=== PATIENT | male | born 1965 | race Caucasian/White ===

== ENCOUNTER 2019-02-19 15:41 | Inpatient (IN) | payer OTHER ==
[2019-02-19 20:02] VITALS: BMI 36.0
--- NOTE | 2019-02-19 22:39 | HP ---
CIWA Score Nausea/Vomitin Muscle Tremors: 4-Moderate,w/Arms Extend Anxiety: 4-Mod. Anxious/Guarded Agitation: 4-Moderately Restless Paroxysmal Sweats: 2 Orientation: 1-Uncertain about Date Tacttile Disturbances: 0-None Auditory Disturbances: 0-None Visual Disturbances: 0-None Headache: 3-Moderate CIWA-Ar Total Score: 20 - Admission Criteria OASAS Guidelines: Admission for Medically Managed Detox: Requires at least one of the followin. CIWA greater than 12 2. Seizures within the past 24 hours 3. Delirium tremens within the past 24 hours 4. Hallucinations within the past 24 hours 5. Acute intervention needed for co occurring medical disorder 6. Acute intervention needed for co occurring psychiatric disorder 7. Severe withdrawal that cannot be handled at a lower level of care (continued vomiting, continued diarrhea, abnormal vital signs) requiring intravenous medication and/or fluids 8. Admission ROS [facility] Chief Complaint: Alcohol withdrawal symptoms Allergies/Adverse Reactions: Allergies Allergy/AdvReac Type Severity Reaction Status Date / Time No Known Allergies Allergy Verified 02/19/19 19:54 History of Present Illness: 53 years old male with a long history of alcohol dependence (since age 11) is seeking admission to detox. Patient has been in previous detox, last at [facility] and reports 9 months of sobriety. He has medical history of hypertension, anxiety and depression. He reports suicide attempt at age 11 and denies suicidal ideation at this time. Exam Limitations: No Limitations - Ebola screening Have you traveled outside of the country in the last 21 days: No Have you had contact with anyone from an Ebola affected area: No - Review of Systems Constitutional: Chills, Malaise, Night Sweats, Changes in sleep EENT: reports: No Symptoms Reported Respiratory: reports: No Symptoms reported Cardiac: reports: No Symptoms Reported GI: reports: Poor Appetite, Poor Fluid Intake, Abdominal cramping : reports: No Symptoms Reported Musculoskeletal: reports: No Symptoms Reported Integumentary: reports: Dryness, Flushing Neuro: reports: Headache, Tremors, Weakness Endocrine: reports: No Symptoms Reported Hematology: reports: No Symptoms Reported Psychiatric: reports: Mood/Affect Appropiate Other Systems: Reviewed and Negative Patient History - Patient Medical History Hx Anemia: No Hx Asthma: No Hx Chronic Obstructive Pulmonary Disease (COPD): No Hx Cancer: No Hx Cardiac Disorders: No Hx Congestive Heart Failure: No Hx Hypertension: Yes (Lisinopril, HCTZ) Hx Hypercholesterolemia: No Hx Pacemaker: No HX Cerebrovascular Accident: No Hx Seizures: No Hx Diabetes: No Hx Gastrointestinal Disorders: No Hx Liver Disease: No Hx Genitourinary Disorders: No Hx Sexually Transmitted Disorders: No Hx Renal Disease (ESRD): No Hx Thyroid Disease: No Hx Human Immunodeficiency Virus (HIV): No (Negative 2019) Hx Hepatitis C: No Hx Depression: Yes (Not on medication) Hx Suicide Attempt: Yes (Attempt at age 11, denies suicidal ideation at this time) Hx Bipolar Disorder: No Hx Schizophrenia: No Other Medical History: Anxiety - Not on mediation - Patient Surgical History Past Surgical History: No - PPD History Previous Implant?: Yes (POSITIVE PPD. INH FOR 9 MONTHS IN 2008) Documented Results: Positive w/o proof Implanted On Prior [facility] Admission?: No PPD to be Administered?: No - Reproductive History Patient is a Female of Child Bearing Age (11 -55 yrs old): No (MALE) - Smoking Cessation Smoking history: Current every day smoker Have you smoked in the past 12 months: No Hx Chewing Tobacco Use: No Initiated information on smoking cessation: No - Substance & Tx. History Hx Alcohol Use: Yes Hx Substance Use: Yes Substance Use Type: Alcohol Hx Substance Use Treatment: [facility] - Substances abused Alcohol Substance route: Oral Frequency: Daily Amount used: liquor- 1 pint, beer- 2 six packs Age of first use: 11 Date of last use: 02/18/19 Crack Substance route: Smoking Frequency: Daily Amount used: $100 worth Age of first use: 20 Date of last use: 02/18/19 Marijuana/Hashish Substance route: Smoking Frequency: Daily Amount used: 2 blunts Age of first use: 11 Date of last use: 02/18/19 Family Disease History - Family Disease History Family History: Denies Admission Physical Exam S - Vital Signs Vital Signs: Vital Signs - 24 hr 02/19/19 02/19/19 19:46 20:52 Temperature 97.3 F L 97.3 F L Pulse Rate 87 87 Respiratory 18 18 Rate Blood Pressure 137/85 137/85 - Physical General Appearance: Yes: Moderate Distress, Tremorous, Sweating, Anxious HEENTM: Yes: Within Normal Limits Respiratory: Yes: Lungs Clear, Normal Breath Sounds, No Respiratory Distress Neck: Yes: Supple Breast: Yes: Breast Exam Deferred Cardiology: Yes: Within Normal Limits Abdominal: Yes: Normal Bowel Sounds, Protuberent Genitourinary: Yes: Within Normal Limits Back: Yes: Normal Inspection Musculoskeletal: Yes: Within Normal Limits Extremities: Yes: Tremors Neurological: Yes: Alert, Normal Mood/Affect Integumentary: Yes: Cold Lymphatic: Yes: Within Normal Limits - Diagnostic (1) Alcohol dependence with uncomplicated withdrawal Current Visit: Yes Status: Acute (2) Hypertension Current Visit: Yes Status: Acute (3) Anxiety Current Visit: Yes Status: Acute (4) Depression Current Visit: Yes Status: Acute (5) Positive PPD, treated Current Visit: Yes Status: Acute Cleared for Admission S - Detox or Rehab [facility] Level of Care: Medically Managed Detox Regimen/Protocol: Librium Claeared for Rehab Admission: No Breathalyzer - Breathalyzer Breathalyzer: 0 Urine Drug Screen - Test Device Lot number: [id number] Expiration date: 12/05/20 - Control Is test valid?: Yes - Results Urine drug screen results: HARJINDER-Cocaine, BZO-Benzodiazepines Inpatient Rehab Admission - Rehab Decision to Admit Inpatient rehab admission?: No
[2019-02-19] MEDS ORDERED: IBUPROFEN 400 MG TABLET (FP) PO PRN (22:53)
[2019-02-19] MEDS ORDERED: MENTHOL/PHENOL 1 EACH UD MM PRN (22:53)
[2019-02-19] MEDS ORDERED: BISMUTH SUBSALICYLATE 524 MG/30 ML UD PO PRN (22:53)
[2019-02-19] MEDS ORDERED: ACETAMINOPHEN 325 MG TABLET (FP) PO PRN ×2 (22:53)
[2019-02-19] MEDS ORDERED: METHOCARBAMOL 500 MG TABLET PO PRN (22:53)
[2019-02-19] MEDS ORDERED: MAG HYDROX/AL HYDROX/SIMETH 30 ML UNIT-DOSE CUP PO PRN (22:53)
[2019-02-19] MEDS ORDERED: hydrOXYzine HCL 25 MG TABLET (FP) PO PRN (22:53)
[2019-02-19] MEDS ORDERED: MELATONIN 5 MG TABLETS PO PRN (22:53)
[2019-02-19] MEDS ORDERED: chlordiazePOXIDE HCL 25 MG CAPSULE PO PRN (22:53)
[2019-02-19] MEDS ORDERED: MAGNESIUM HYDROX 2400MG/30ML ORAL SUSPENSION 30 ML CUP PO PRN (22:53)
[2019-02-19] MEDS ORDERED: MAGNESIUM CITRATE 300 ML BOTTLE PO PRN (22:53)
[2019-02-19] MEDS: chlordiazePOXIDE HCL 25 MG CAPSULE PO SCH (23:42)
[2019-02-20] MEDS: chlordiazePOXIDE HCL 25 MG CAPSULE PO SCH ×4 (06:39→23:10)
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
--- NOTE | 2019-02-20 09:07 | PN ---
[facility] CIWA - CIWA Score Nausea/Vomitin Muscle Tremors: 2 Anxiety: 2 Agitation: 2 Paroxysmal Sweats: 1-Minimal Palms Moist Orientation: 0-Oriented Tacttile Disturbances: 1-Very Mild Itch/Numbness Auditory Disturbances: 1-Very Mild Visual Disturbances: 0-None Headache: 2-Mild CIWA-Ar Total Score: 13 [facility] Progress Note (SOAP) Subjective: alert,irritable,anxious,interrupted sleep,tremor Objective: 02/20/19 09:05 Vital Signs Temperature 97.7 F 02/20/19 07:15 Pulse Rate 73 02/20/19 07:15 Respiratory Rate 18 02/20/19 07:15 Blood Pressure 132/72 02/20/19 07:15 O2 Sat by Pulse Oximetry (%) 02/20/19 09:05 labs pending Assessment: 02/20/19 09:06 withdrawal symptom Plan: continue detox,iibrium regimen
[2019-02-20] MEDS: PRENATAL VITAMINS W/ FOLIC ACID TABLET (FP) PO SCH (10:53)
[2019-02-20] MEDS: HYDROCHLOROTHIAZIDE 25 MG TABLET (FP) PO SCH (10:54)
[2019-02-20] MEDS: LISINOPRIL 20 MG TABLET (FP) PO SCH (10:55)
[2019-02-20 12:15] LABS: HEMOGLOBIN 12.7 GM/dL (11.7-16.9); RBC 4.69 M/mm3 (4.00-5.60); WHITE BLOOD COUNT 6.5 K/mm3 (4.0-10.0)
[2019-02-20 12:16] LABS: HEMATOCRIT 39.2 % (35.4-49); MCH 27.2 pg (25.7-33.7); MCHC 32.5 g/dl (32.0-35.9); MEAN CELL VOLUME 83.6 fl (80-96); MEAN PLT VOLUME 9.8 fl (7.5-11.1)
[2019-02-20 12:26] LABS: ALBUMIN 3.3 g/dl (3.4-5.0); BILIRUBIN,TOTAL 0.9 mg/dL (0.2-1); BLOOD UREA NITROGEN 18.3 mg/dL (7-18); CALCIUM 8.2 mg/dL (8.5-10.1); CREATININE 1.2 mg/dL (0.55-1.3); POTASSIUM 3.7 mmol/L (3.5-5.1); TOT PROT 6.3 g/dl (6.4-8.2)
[2019-02-20 13:19] LABS: PLATELET COUNT 172 K/MM3 (134-434)
[2019-02-20] MEDS: THIAMINE HCL 100 MG TABLET (FP) PO SCH (23:10)
[2019-02-21] MEDS: chlordiazePOXIDE HCL 25 MG CAPSULE PO SCH ×4 (06:51→22:41)
--- NOTE | 2019-02-21 10:17 | PN ---
S CIWA - CIWA Score Nausea/Vomitin-Mild Nausea/No Vomiting Muscle Tremors: 1-None Visible, but [place] Anxiety: 1-Mildly Anxious Agitation: 1-Slight > Activity Paroxysmal Sweats: 2 Orientation: 0-Oriented Tacttile Disturbances: 1-Very Mild Itch/Numbness Auditory Disturbances: 0-None Visual Disturbances: 1-Very Mild Sensitivity Headache: 0-None Present CIWA-Ar Total Score: 8 [facility]HS Progress Note (SOAP) Subjective: c/o of interrupted sleep, irritable, body aches Objective: 02/21/19 10:09 Vital Signs Temperature 97.7 F 02/21/19 07:14 Pulse Rate 67 02/21/19 07:14 Respiratory Rate 18 02/21/19 07:14 Blood Pressure 112/63 02/21/19 07:14 O2 Sat by Pulse Oximetry (%) Laboratory Last Values WBC 6.5 K/mm3 (4.0-10.0) 02/20/19 07:00 RBC 4.69 M/mm3 (4.00-5.60) 02/20/19 07:00 Hgb 12.7 GM/dL (11.7-16.9) 02/20/19 07:00 Hct 39.2 % (35.4-49) 02/20/19 07:00 MCV 83.6 fl (80-96) 02/20/19 07:00 MCH 27.2 pg (25.7-33.7) 02/20/19 07:00 MCHC 32.5 g/dl (32.0-35.9) 02/20/19 07:00 RDW 16.0 % (11.9-15.9) H 02/20/19 07:00 Plt Count 172 K/MM3 (134-434) 02/20/19 07:00 MPV 9.8 fl (7.5-11.1) 02/20/19 07:00 Sodium 144 mmol/L (136-145) 02/20/19 07:00 Potassium 3.7 mmol/L (3.5-5.1) 02/20/19 07:00 Chloride 110 mmol/L (98-107) H 02/20/19 07:00 Carbon Dioxide 28 mmol/L (21-32) 02/20/19 07:00 Anion Gap 5 MMOL/L (8-16) L 02/20/19 07:00 BUN 18.3 mg/dL (7-18) H 02/20/19 07:00 Creatinine 1.2 mg/dL (0.55-1.3) 02/20/19 07:00 Est GFR (CKD-EPI)AfAm 78.98 02/20/19 07:00 Est GFR (CKD-EPI)NonAf 68.14 02/20/19 07:00 Random Glucose 119 mg/dL (74-106) H 02/20/19 07:00 Calcium 8.2 mg/dL (8.5-10.1) L 02/20/19 07:00 Total Bilirubin 0.9 mg/dL (0.2-1) 02/20/19 07:00 AST 26 U/L (15-37) 02/20/19 07:00 ALT 48 U/L (13-61) 02/20/19 07:00 Alkaline Phosphatase 96 U/L (45-117) 02/20/19 07:00 Total Protein 6.3 g/dl (6.4-8.2) L 02/20/19 07:00 Albumin 3.3 g/dl (3.4-5.0) L 02/20/19 07:00 RPR Titer Nonreactive (NONREACTIVE) 02/20/19 07:00 labs reviewed Assessment: 02/21/19 10:18 Aox3 irritable no acute distress no adventitious breath sounds full ROM Plan: increase PO fluids continue detox continue to monitor
[2019-02-21] MEDS: HYDROCHLOROTHIAZIDE 25 MG TABLET (FP) PO SCH (15:13)
[2019-02-21] MEDS: LISINOPRIL 20 MG TABLET (FP) PO SCH (15:13)
[2019-02-21] MEDS: PRENATAL VITAMINS W/ FOLIC ACID TABLET (FP) PO SCH (15:13)
[2019-02-21] MEDS: THIAMINE HCL 100 MG TABLET (FP) PO SCH (22:41)
[2019-02-22] MEDS ORDERED: chlordiazePOXIDE HCL 10 MG CAPSULE PO PRN
[2019-02-22] MEDS: chlordiazePOXIDE HCL 10 MG CAPSULE PO SCH ×4 (06:37→23:25)
[2019-02-22] MEDS: HYDROCHLOROTHIAZIDE 25 MG TABLET (FP) PO SCH (10:30)
[2019-02-22] MEDS: PRENATAL VITAMINS W/ FOLIC ACID TABLET (FP) PO SCH (10:30)
[2019-02-22] MEDS: LISINOPRIL 20 MG TABLET (FP) PO SCH (10:30)
--- NOTE | 2019-02-22 14:44 | PN ---
[facility] CIWA - CIWA Score Nausea/Vomitin-No Nausea/No Vomiting Muscle Tremors: 1-None Visible, but [place] Anxiety: 2 Agitation: 0-Normal Activity Paroxysmal Sweats: 2 Orientation: 0-Oriented Tacttile Disturbances: 1-Very Mild Itch/Numbness Auditory Disturbances: 0-None Visual Disturbances: 0-None Headache: 1-Very Mild CIWA-Ar Total Score: 7 S Progress Note (SOAP) Subjective: interrupted sleep, chills, body aches Objective: 02/22/19 14:43 Vital Signs Temperature 97.9 F 02/22/19 13:21 Pulse Rate 79 02/22/19 13:21 Respiratory Rate 18 02/22/19 13:21 Blood Pressure 137/92 02/22/19 13:21 O2 Sat by Pulse Oximetry (%) Laboratory Last Values WBC 6.5 K/mm3 (4.0-10.0) 02/20/19 07:00 RBC 4.69 M/mm3 (4.00-5.60) 02/20/19 07:00 Hgb 12.7 GM/dL (11.7-16.9) 02/20/19 07:00 Hct 39.2 % (35.4-49) 02/20/19 07:00 MCV 83.6 fl (80-96) 02/20/19 07:00 MCH 27.2 pg (25.7-33.7) 02/20/19 07:00 MCHC 32.5 g/dl (32.0-35.9) 02/20/19 07:00 RDW 16.0 % (11.9-15.9) H 02/20/19 07:00 Plt Count 172 K/MM3 (134-434) 02/20/19 07:00 MPV 9.8 fl (7.5-11.1) 02/20/19 07:00 Sodium 144 mmol/L (136-145) 02/20/19 07:00 Potassium 3.7 mmol/L (3.5-5.1) 02/20/19 07:00 Chloride 110 mmol/L (98-107) H 02/20/19 07:00 Carbon Dioxide 28 mmol/L (21-32) 02/20/19 07:00 Anion Gap 5 MMOL/L (8-16) L 02/20/19 07:00 BUN 18.3 mg/dL (7-18) H 02/20/19 07:00 Creatinine 1.2 mg/dL (0.55-1.3) 02/20/19 07:00 Est GFR (CKD-EPI)AfAm 78.98 02/20/19 07:00 Est GFR (CKD-EPI)NonAf 68.14 02/20/19 07:00 Random Glucose 119 mg/dL (74-106) H 02/20/19 07:00 Calcium 8.2 mg/dL (8.5-10.1) L 02/20/19 07:00 Total Bilirubin 0.9 mg/dL (0.2-1) 02/20/19 07:00 AST 26 U/L (15-37) 02/20/19 07:00 ALT 48 U/L (13-61) 02/20/19 07:00 Alkaline Phosphatase 96 U/L (45-117) 02/20/19 07:00 Total Protein 6.3 g/dl (6.4-8.2) L 02/20/19 07:00 Albumin 3.3 g/dl (3.4-5.0) L 02/20/19 07:00 RPR Titer Nonreactive (NONREACTIVE) 02/20/19 07:00 Assessment: 02/22/19 14:44 withdrawal sx Plan: continue detox
[2019-02-22] MEDS: THIAMINE HCL 100 MG TABLET (FP) PO SCH (23:15)
[2019-02-23] MEDS ORDERED: chlordiazePOXIDE HCL 10 MG CAPSULE PO SCH (05:00)
--- NOTE | 2019-02-23 10:15 | DS ---
[facility] Detox Discharge Summary Admission Date: 02/19/19 Discharge Date: 02/23/19 - History Present History: Alcohol Dependence, Cannabis Dependence, Cocaine Dependence - Physical Exam Results Vital Signs: Vital Signs Temperature 98.1 F 02/23/19 09:08 Pulse Rate 74 02/23/19 09:08 Respiratory Rate 18 02/23/19 09:08 Blood Pressure 136/91 02/23/19 09:08 O2 Sat by Pulse Oximetry (%) Pertinent Admission Physical Exam Findings: pt arrived in withdrawals Laboratory Tests 02/20/19 02/20/19 02/20/19 07:00 07:00 07:00 WBC 6.5 RBC 4.69 Hgb 12.7 Hct 39.2 MCV 83.6 MCH 27.2 MCHC 32.5 RDW 16.0 H Plt Count 172 MPV 9.8 Sodium 144 Potassium 3.7 Chloride 110 H Carbon Dioxide 28 Anion Gap 5 L BUN 18.3 H Creatinine 1.2 Est GFR (CKD-EPI)AfAm 78.98 Est GFR (CKD-EPI)NonAf 68.14 Random Glucose 119 H Calcium 8.2 L Total Bilirubin 0.9 AST 26 ALT 48 Alkaline Phosphatase 96 Total Protein 6.3 L Albumin 3.3 L RPR Titer Nonreactive pt is aaox3 ambulating no s/s of withdrawals - Treatment Hospital Course: Detox Protocol Followed, Detoxed Safely, Responded well, Discharged Condition Good, Rehab Referral Accepted Patient has Accepted a Rehab Referral to: pt referred to [facility] inpatient rehab - Medication Discharge Medications: Ambulatory Orders Hydrochlorothiazide 37.5 mg PO DAILY 02/19/19 Lisinopril [Prinivil -] 40 mg PO DAILY 02/19/19 - Diagnosis (1) Alcohol dependence with uncomplicated withdrawal Current Visit: Yes Status: Chronic (2) Anxiety Current Visit: Yes Status: Acute (3) Cannabis dependence Current Visit: Yes Status: Chronic (4) Cocaine dependence Current Visit: Yes Status: Chronic Qualifiers: Substance use status: uncomplicated Qualified Code(s): F14.20 - Cocaine dependence, uncomplicated (5) Depression Current Visit: Yes Status: Acute (6) Substance-induced sleep disorder Current Visit: Yes Status: Acute (7) Hypertension Current Visit: Yes Status: Chronic Qualifiers: Hypertension type: essential hypertension Qualified Code(s): I10 - Essential (primary) hypertension (8) MDD (major depressive disorder) Current Visit: Yes Status: Chronic (9) Nicotine dependence Current Visit: Yes Status: Chronic Qualifiers: Nicotine product type: cigarettes Substance use status: uncomplicated Qualified Code(s): F17.210 - Nicotine dependence, cigarettes, uncomplicated (10) PTSD (post-traumatic stress disorder) Current Visit: Yes Status: Chronic (11) Positive PPD, treated Current Visit: Yes Status: Resolved - AMA Did Patient Leave Against Medical Advice: No (referred to rehab in [facility])
[2019-02-23] MEDS: PRENATAL VITAMINS W/ FOLIC ACID TABLET (FP) PO SCH (10:23)
[2019-02-23] MEDS: HYDROCHLOROTHIAZIDE 25 MG TABLET (FP) PO SCH (10:23)
[2019-02-23] MEDS: LISINOPRIL 20 MG TABLET (FP) PO SCH (10:26)
[2019-02-23] MEDS ORDERED: AMMONIUM LACTATE 12% LOTION 225 GM BOTTLE TP PRN (11:20)
[2019-02-23] MEDS ORDERED: COLLOIDAL OATMEAL 1 BAR EACH TP ONE (11:21)
[2019-02-23 13:02] VITALS: BP 144/96; PULSE 84; TEMP 97.5
[2019-02-24] MEDS ORDERED: chlordiazePOXIDE HCL 10 MG CAPSULE PO ONE (05:00)
== END 2019-02-23 14:35 | disposition other institution (70) | DRG 774 ==
LOC: YASAS 15:41 → Y6N 23:05
PROVIDERS: ADMIT Surgery; ATTEND Surgery
PROC: HZ2ZZZZ Detoxification Services for Substance Abuse Treatment (ICD-10-PCS; principal; 2019-02-19)
DX: F10.230 Alcohol dependence with withdrawal, uncomplicated (principal); F14.20 Cocaine dependence, uncomplicated; F12.20 Cannabis dependence, uncomplicated; F17.210 Nicotine dependence, cigarettes, uncomplicated; F41.9 Anxiety disorder, unspecified; F32.9 Major depressive disorder, single episode, unspecified; F19.282 Other psychoactive substance dependence with psychoactive substance-induced sleep disorder; F43.10 Post-traumatic stress disorder, unspecified; I10 Essential (primary) hypertension; R76.11 Nonspecific reaction to tuberculin skin test without active tuberculosis; Z91.5 Personal history of self-harm; Z59.0 Homelessness
CPT/HCPCS: 36415; 80053; 85027; 86593

== ENCOUNTER 2019-02-23 15:09 | Inpatient (IN) | payer OTHER ==
--- NOTE | 2019-02-23 13:09 | HP ---
[facility] Rehab Assess/Revision - Admission History Admitted to Rehab from[facility] - Findings Detox History & Physical reviewed: Yes Concur with findings: Yes Inpatient Rehab Admission - Rehab Decision to Admit Inpatient rehab admission?: Yes - Initial Determination Are CD services needed?: Yes Free of communicable disease: Yes Not in need of hospitalization: Yes - Rehab Admission Criteria Previous failed treatment: Yes Poor recovery environment: Yes Comorbidities: Yes Lacks judgement: Yes Patient is meeting Inpatient Rehab admission criteria:: Yes
[~2019-02-23 15:09] MED LIST: ACETAMINOPHEN 325 MG TABLET (FP) PO PRN; AMMONIUM LACTATE 12% LOTION 225 GM BOTTLE TP PRN; IBUPROFEN 400 MG TABLET (FP) PO PRN; LOPERAMIDE HCL 2 MG CAPSULE PO PRN; MAG HYDROX/AL HYDROX/SIMETH 30 ML UNIT-DOSE CUP PO PRN; MAGNESIUM CITRATE 300 ML BOTTLE PO PRN; MAGNESIUM HYDROX 2400MG/30ML ORAL SUSPENSION 30 ML CUP PO PRN; MENTHOL/PHENOL 1 EACH UD MM PRN; NICOTINE POLACRILEX 4 MG GUM BUC PRN; P-EPHED 60MG/TRIPROLIDI 2.5MG TABLET PO PRN; guaiFENesin 200 MG/10 ML 10 ML UNIT-DOSE CUPS PO PRN; hydrOXYzine PAMOATE 50 MG CAPSULE (FP) PO PRN
[2019-02-23] MEDS ORDERED: MELATONIN 5 MG TABLETS PO PRN (22:00)
[2019-02-23] MEDS: THIAMINE HCL 100 MG TABLET (FP) PO SCH (22:30)
[2019-02-24 06:54] VITALS: TEMP 97.8
[2019-02-24] MEDS: NICOTINE 21 MG/24 HOURS TOPICAL PATCH TD SCH (10:00)
[2019-02-24] MEDS: PRENATAL VITAMINS W/ FOLIC ACID TABLET (FP) PO SCH (10:00)
[2019-02-24] MEDS ORDERED: AMMONIUM LACTATE 12% LOTION 225 GM BOTTLE TP PRN (10:23)
[2019-02-24] MEDS ORDERED: LISINOPRIL 20 MG TABLET (FP) PO SCH (10:30)
[2019-02-24] MEDS ORDERED: HYDROCHLOROTHIAZIDE 25 MG TABLET (FP) PO SCH (10:30)
[2019-02-24] MEDS ORDERED: COLLOIDAL OATMEAL 1 BAR EACH TP PRN (11:31)
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
[2019-02-24] MEDS: THIAMINE HCL 100 MG TABLET (FP) PO SCH (21:36)
[2019-02-25] MEDS ORDERED: HYDROCHLOROTHIAZIDE 12.5 MG CAPSULE (FP) PO SCH (09:40)
[2019-02-25] MEDS ORDERED: LISINOPRIL 10 MG TABLET (FP) PO SCH (10:00)
[2019-02-25] MEDS: NICOTINE 21 MG/24 HOURS TOPICAL PATCH TD SCH (10:14)
[2019-02-25] MEDS: PRENATAL VITAMINS W/ FOLIC ACID TABLET (FP) PO SCH (10:15)
[2019-02-25 10:56] VITALS: BP 152/87; PULSE 75
--- NOTE | 2019-02-25 23:15 | DS ---
[facility] Detox Discharge Summary Admission Date: 02/23/19 Discharge Date: 02/25/19 - History Additional Comments: I was informed by the nurse, Ms. Pelayo at 11.10AM that patient left against medical advice at about 8.00PM. Unable to obtain any further information Pertinent Past History: Withdrawal symptoms - Physical Exam Results Vital Signs: Vital Signs Temperature 97.8 F 02/25/19 07:21 Pulse Rate 75 02/25/19 10:00 Respiratory Rate 18 02/25/19 10:00 Blood Pressure 152/87 02/25/19 10:00 O2 Sat by Pulse Oximetry (%) Pertinent Admission Physical Exam Findings: Alcohol dependence, cocaine dependence, cannabis dependence, opioids dependence - Medication Discharge Medications: Ambulatory Orders Hydrochlorothiazide 37.5 mg PO DAILY 02/19/19 Lisinopril [Prinivil -] 40 mg PO DAILY 02/19/19 - Diagnosis (1) Alcohol dependence with uncomplicated withdrawal Status: Chronic (2) Depression Status: Acute Qualifiers: Major depression episode severity: unspecified (3) Hypertension Status: Chronic Qualifiers: Hypertension type: essential hypertension Qualified Code(s): I10 - Essential (primary) hypertension (4) MDD (major depressive disorder) Status: Chronic (5) Nicotine dependence Status: Chronic Qualifiers: Nicotine product type: cigarettes Substance use status: uncomplicated Qualified Code(s): F17.210 - Nicotine dependence, cigarettes, uncomplicated (6) PTSD (post-traumatic stress disorder) Status: Chronic (7) Positive PPD, treated Status: Resolved - AMA Did Patient Leave Against Medical Advice: Yes
== END 2019-02-25 20:35 | disposition left against medical advice (07) | DRG 770 ==
LOC: YASAS 15:09 → Y5N 15:10
PROVIDERS: ADMIT Neuromusculoskeletal Medicine & OMM; ATTEND Neuromusculoskeletal Medicine & OMM
PROC: HZ42ZZZ Group Counseling for Substance Abuse Treatment, Cognitive-Behavioral (ICD-10-PCS; principal; 2019-02-23)
DX: F14.20 Cocaine dependence, uncomplicated (principal); F12.20 Cannabis dependence, uncomplicated; F17.210 Nicotine dependence, cigarettes, uncomplicated; F32.9 Major depressive disorder, single episode, unspecified; F19.282 Other psychoactive substance dependence with psychoactive substance-induced sleep disorder; F43.10 Post-traumatic stress disorder, unspecified; I10 Essential (primary) hypertension; Z91.5 Personal history of self-harm; Z59.0 Homelessness

== ENCOUNTER 2021-07-07 12:44 | Inpatient (IN) | payer OTHER ==
[2021-07-07 13:28] VITALS: BMI 29.5
[2021-07-07] MEDS ORDERED: MAGNESIUM CITRATE 300 ML BOTTLE PO PRN (14:03)
[2021-07-07] MEDS ORDERED: MAG HYDROX/AL HYDROX/SIMETH 30 ML UNIT-DOSE CUP PO PRN (14:03)
[2021-07-07] MEDS ORDERED: P-EPHED 60MG/TRIPROLIDI 2.5MG TABLET PO PRN (14:03)
[2021-07-07] MEDS ORDERED: ACETAMINOPHEN 325 MG TABLET (FP) PO PRN (14:03)
[2021-07-07] MEDS ORDERED: MAGNESIUM HYDROX 2400MG/30ML ORAL SUSPENSION 30 ML CUP PO PRN (14:03)
[2021-07-07] MEDS ORDERED: NICOTINE 10 MG CARTRIDGE (INHALER) IH PRN (14:03)
[2021-07-07] MEDS ORDERED: guaiFENesin 200 MG/10 ML 10 ML UNIT-DOSE CUPS PO PRN (14:03)
[2021-07-07] MEDS ORDERED: LOPERAMIDE HCL 2 MG CAPSULE PO PRN (14:03)
[2021-07-07] MEDS ORDERED: IBUPROFEN 400 MG TABLET (FP) PO PRN (14:03)
[2021-07-07] MEDS: NICOTINE 7 MG/24 HOURS TOPICAL PATCH TD SCH (15:06)
[2021-07-07] MEDS: PRENATAL VITAMINS W/ FOLIC ACID TABLET (FP) PO SCH (15:12)
[2021-07-07 18:42] LABS: HEMATOCRIT 49.1 % (35.4-49); HEMOGLOBIN 16.3 GM/dL (11.7-16.9); MCHC 33.1 g/dl (32.0-35.9); MEAN CELL VOLUME 84.6 fl (80-96); MEAN PLT VOLUME 9.5 fl (7.5-11.1); PLATELET COUNT 225 10^3/uL (134-434); RDW 14.4 % (11.9-15.9); WHITE BLOOD COUNT 8.6 K/mm3 (4.0-10.0)
[2021-07-07 18:44] LABS: CALCIUM 9.6 mg/dL (8.5-10.1)
[2021-07-07 18:45] LABS: ALBUMIN 4.2 g/dl (3.4-5.0); BLOOD UREA NITROGEN 33.5 mg/dL (7-18)
[2021-07-07 18:48] LABS: BILIRUBIN,TOTAL 1.2 mg/dL (0.2-1); CREATININE 1.2 mg/dL (0.55-1.3)
[2021-07-07] MEDS: hydrOXYzine PAMOATE 25 MG CAPSULE (FP) PO SCH ×2 (18:50→23:01)
[2021-07-07 19:42] LABS: SYPHILIS W/ RPR CONF REACTIVE (NONREACTIVE)
[2021-07-07] MEDS ORDERED: MELATONIN 5 MG TABLETS PO SCH (22:00)
[2021-07-07] MEDS ORDERED: THIAMINE HCL 100 MG TABLET (FP) PO SCH (22:00)
[2021-07-08] MEDS: hydrOXYzine PAMOATE 25 MG CAPSULE (FP) PO SCH ×2 (06:45→14:20)
[2021-07-08 06:53] VITALS: BP 139/92; PULSE 66; TEMP 98.2
[2021-07-08] MEDS ORDERED: HYDROCHLOROTHIAZIDE 12.5 MG CAPSULE (FP) PO SCH (10:00)
[2021-07-08] MEDS ORDERED: LISINOPRIL 20 MG TABLET PO SCH (10:00)
[2021-07-08] MEDS ORDERED: hydrOXYzine PAMOATE 25 MG CAPSULE (FP) PO PRN (10:15)
[2021-07-08] MEDS ORDERED: POTASSIUM CHLORIDE TABS 20 MEQ TABLET.ER (FP) PO ONE (11:00)
[2021-07-08 12:19] LABS: EPI CELLS 25 /uL (0-25.1); HYALINE CASTS 7 /uL (0-3.1); PH,URINE 5.5 (5.0-8.0); URINE APPEARANCE CLEAR; URINE BACTERIA 37 /uL (0-1359); URINE BILIRUBIN NEGATIVE (NEGATIVE); URINE COLOR DK YELLOW; URINE GLUCOSE (UA) NEGATIVE (NEGATIVE); URINE KETONE TRACE (NEGATIVE); URINE LEUK ESTERASE 1+ (NEGATIVE); URINE NITRITE NEGATIVE (NEGATIVE); URINE PROTEIN NEGATIVE (NEGATIVE); URINE RBC 39 /uL (0-23.9); URINE WBC 86 /uL (0-25.8)
[2021-07-08] MEDS: PRENATAL VITAMINS W/ FOLIC ACID TABLET (FP) PO SCH (14:17)
[2021-07-08] MEDS: NICOTINE 7 MG/24 HOURS TOPICAL PATCH TD SCH (14:17)
== END 2021-07-08 15:29 | disposition left against medical advice (07) | DRG 770 ==
LOC: YASAS 12:44 → Y3W 14:02
PROVIDERS: ADMIT Allergy & Immunology; ATTEND Allergy & Immunology
PROC: HZ42ZZZ Group Counseling for Substance Abuse Treatment, Cognitive-Behavioral (ICD-10-PCS; principal; 2021-07-07)
DX: F14.20 Cocaine dependence, uncomplicated (principal); F17.210 Nicotine dependence, cigarettes, uncomplicated; F41.9 Anxiety disorder, unspecified; F31.9 Bipolar disorder, unspecified; F43.10 Post-traumatic stress disorder, unspecified; I10 Essential (primary) hypertension; Z86.11 Personal history of tuberculosis; Z56.0 Unemployment, unspecified; Z59.02 Unsheltered homelessness
CPT/HCPCS: 36415; 80053; 81003; 85027; 86593; 86780; 86803; C9803; U0003; U0005